=== PATIENT | female | born 1960 | race Caucasian/White ===

== ENCOUNTER 2019-12-11 20:04 | Emergency (ER) | payer OTHER ==
[~2019-12-11] VITALS: Ht 154.9 cm; Wt 60.3 kg
[2019-12-11 20:33] VITALS: BP 154/92
[2019-12-11] MEDS ORDERED: CLINDAMYCIN HCL 150 MG CAPSULE PO ONE ×2 (21:10→21:30)
[2019-12-11] MEDS ORDERED: LIDOCAINE 1%-EPI 1:100,000 20 ML VIAL ONE (21:27)
[2019-12-11] MEDS ORDERED: ONDANSETRON 4 MG TAB.RAPDIS SL ONE (21:30)
[2019-12-11] MEDS ORDERED: HYDROCODONE/APAP 5/325MG 1 EACH TABLET PO ONE (21:30)
== END 2019-12-11 21:36 | disposition home or self-care (01) ==
LOC: ER 20:07
DX: L02.416 Cutaneous abscess of left lower limb (principal); I10 Essential (primary) hypertension; F17.200 Nicotine dependence, unspecified, uncomplicated
CPT/HCPCS: 10060; 99283; A6403; J3490

== ENCOUNTER 2019-12-14 15:35 | Emergency (ER) | payer OTHER ==
[~2019-12-14] VITALS: Ht 154.9 cm; Wt 60.8 kg
--- NOTE | 2019-12-14 15:53 | NUR ---
FOR WOUND CHECK ON LEFT LOWER EXTREMITY, ON ABX TREATMENT. PATIENT A/OX4, BREATHING EVEN AND UNLABORED, NO SOB NOTED. WILL CONTINUE TO MONITOR.
--- NOTE | 2019-12-14 15:55 | NUR ---
DR. DUNAWAY AT BEDSIDE FOR EVAL
[2019-12-14] MEDS ORDERED: LIDOCAINE 1%-EPI 1:100,000 20 ML VIAL TP ONE (16:00)
[2019-12-14] MEDS ORDERED: LIDOCAINE 1%-EPI 1:100,000 20 ML VIAL ONE (16:03)
--- NOTE | 2019-12-14 16:15 | NUR ---
I&D DONE BY DR. DUNAWAY. COVERED WITH BANDAGE.
[2019-12-14 16:35] VITALS: BP 162/80
== END 2019-12-14 16:37 | disposition home or self-care (01) ==
LOC: ER 15:37
DX: L02.416 Cutaneous abscess of left lower limb (principal); I10 Essential (primary) hypertension; F17.200 Nicotine dependence, unspecified, uncomplicated
CPT/HCPCS: 10060; 99283; A6403; J3490

== ENCOUNTER 2021-08-27 02:18 | Inpatient (IN) | payer OTHER ==
[~2021-08-27] VITALS: Ht 167.6 cm; Wt 61.2 kg
[2021-08-27] MEDS ORDERED: IV NS 0.9% 1,000 ML BAG IV ONE (02:30)
[2021-08-27] MEDS ORDERED: ONDANSETRON HCL/PF 4 MG/2 ML VIAL IVP ONE (02:30)
--- NOTE | 2021-08-27 02:30 | NUR ---
PT BIBRA 102 FROM HOME C/O EPIGASTRIC PAIN +N/V X3 DAYS. PT WAS ALSO COVID POSITIVE LAST MONTH. PT IS ON ROOM AIR SHOWING NO S/S OF RESP DISTRESS/SOB. BP IS ELEVATED AND MD IS MADE AWARE. ALL SAFETY PRECAUTIONS IMPLEMENTED. WILL CONTINUE TO MONITOR AND ASSESS FOR ANY CHANGES.
--- NOTE | 2021-08-27 02:42 | NUR ---
EKG DONE AT BEDSIDE
--- NOTE | 2021-08-27 02:42 | NUR ---
COVID SPECIMEN COLLECTED AND SENT TO LAB
[2021-08-27] MEDS ORDERED: PANTOPRAZOLE 40 MG VIAL ONE ×2 (02:46→03:49)
[2021-08-27] MEDS ORDERED: hydrALAZINE HCL IV 20 MG VIAL ONE (02:46)
[2021-08-27] MEDS ORDERED: ONDANSETRON HCL/PF 4 MG/2 ML VIAL ONE ×2 (02:46→03:56)
[2021-08-27 02:49] LABS: BASOPHILS # (AUTO) 0.1 K/uL (0.0-0.2); BASOPHILS % (AUTO) 0.4 % (0.0-2.0); EOSINOPHILS % (AUTO) 0.9 % (0.0-6.0); HEMATOCRIT 28 % (33-45); HEMOGLOBIN 9.3 g/dL (11.5-14.8); LYMPHOCYTES # (AUTO) 1.9 K/uL (0.8-4.8); LYMPHOCYTES % (AUTO) 11.3 % (20.0-44.0); MEAN CORPUSCULAR HGB CONC 33 g/dl (31.0-36.0); MEAN CORPUSCULAR VOLUME 89 fL (82-100); MONOCYTES # (AUTO) 0.8 K/uL (0.1-1.30); MONOCYTES % (AUTO) 4.7 % (2.0-12.0); NEUTROPHILS # (AUTO) 14.1 K/uL (1.8-8.9); NEUTROPHILS % (AUTO) 82.7 % (43.0-81.0); PLATELET COUNT (AUTO) 500 K/uL (150-450); RED BLOOD CELL COUNT(AUTO) 3.18 MIL/uL (4.0-5.2); WHITE BLOOD COUNT (AUTO) 17.1 K/uL (4.3-11.0)
[2021-08-27 02:50] LABS: CALCIUM, SERUM 8.7 mg/dL (8.5-10.1); CREATININE 0.8 mg/dL (0.6-1.3); POTASSIUM 3.5 mmol/L (3.5-5.1)
[2021-08-27 02:57] LABS: ALBUMIN 3.1 g/dL (3.4-5.0); BILIRUBIN,DIRECT 0.6 mg/dL (0.0-0.2); BILIRUBIN,TOTAL 0.9 mg/dL (0.2-1.0); TOTAL PROTEIN, SERUM 7.3 g/dL (6.4-8.2)
[2021-08-27] MEDS ORDERED: hydrALAZINE HCL IV 20 MG VIAL IV ONE (03:00)
[2021-08-27] MEDS ORDERED: PANTOPRAZOLE 80 MG in IV NS 0.9% 500 ML IV ONE (03:00)
--- NOTE | 2021-08-27 03:39 | NUR ---
CALLED HOUSE SUP FOR TELE BED
[2021-08-27] MEDS ORDERED: ONDANSETRON HCL/PF 4 MG/2 ML VIAL IV ONE (04:00)
--- NOTE | 2021-08-27 04:05 | NUR ---
ALL DUE MEDS GIVEN ORDERED. MADE AWARE ON CONSISTENT N/V AFTER FIRST ADMINISTRATION OF ZOFRAN. PT BLOOD PRESSURE NOW 143/71. WILL CONTINUE TO MONITOR AND ASSESS.
--- NOTE | 2021-08-27 05:00 | NUR ---
REPORT GIVEN TO SHANTI PEREZ FOR TAVON.
[2021-08-27] MEDS ORDERED: PIPERACILLIN /TAZOBACTAM 3.375 G VIAL IV ONE (05:12)
--- NOTE | 2021-08-27 05:30 | NUR ---
PT TRANSFERRED TO [facility] PER ACLS PROTOCOL
--- NOTE | 2021-08-27 05:40 | NUR ---
ADMISSION RN NOTES, RECEIVED 60 YEAR OLD FEMALE, ADMITTING FROM ER VIA STRETCHER ACCOMPANIED BY 2 NURSES, [facility], WITH DX GI BLEED, PATIENT A/O X3 FILIPINO SPEAKING, UNDERSTAND ARMENIAN, BREATHING EVEN AND UNLABORED, NO SOB/ACUTTE DISTRESS NOTED, C/O NAUSEA, AND ABD PAIN 2/10, UPON ADMISSION, BP 180/83, 97.0, 18, 88, PATIENT PALE, SKIN COOL TO TOUCH, IV SITE RIGHT FA AND LEFT AC 20G, PATENT AND INTACT, ASPIRATION PRECAUTIONS, ALL SAFETY MEASURES IN PLACED, CALL LIGHT W/I REACH, S/R OF BED X2 UP, WILL CALL [facility] FOR ORDERS, WILL CONTINUE TO MONITOR CLOSELY.
--- NOTE | 2021-08-27 05:43 | NUR ---
RN NOTES, PAGED [facility] FOR ORDERS, AWAITING FOR CALL BACK.
[2021-08-27 05:50] VITALS: BP 180/80
[2021-08-27] MEDS ORDERED: PIPERACILLIN /TAZOBACTAM 3.375 G in IV D5W 50 ML IV SCH (06:00)
--- NOTE | 2021-08-27 06:00 | NUR ---
RN NOTES, PAGED [facility] AGAIN TO OBTAIN ORDERS, PATIENT WITH HIGH BLOOD PRESSURE, NAUSEAS, AND C/O ABD, PER HATCH TENDER WILL PAGED [facility].
--- NOTE | 2021-08-27 06:13 | NUR ---
RN NOTES, CALLED [facility] AGAIN AT THIS TIME, SHE WILL PUT ORDERS, STAT CBC, CLARIFIED WITH HER IF SHE WANT ME TO ADM PROTONIX AT THIS TIME, SINCE SHE GOT PROTONIX IN ER AT 0400, PER HER TO ADMINISTER PROTONIX.
[2021-08-27] MEDS ORDERED: DEXTROSE 50%-WATER 50 ML DISP.SYRIN IV PRN (06:30)
[2021-08-27] MEDS ORDERED: ACETAMINOPHEN 325 MG TABLET PO PRN (06:30)
[2021-08-27] MEDS ORDERED: CIPROFLOXACIN IV RTU 400 MG in PREMIX 1 EA IV SCH (06:30)
[2021-08-27] MEDS ORDERED: ONDANSETRON HCL/PF 4 MG/2 ML VIAL IVP PRN (06:30)
--- NOTE | 2021-08-27 07:00 | NUR ---
RN NOTES, AWAITING FOR PHARMACY TO VERIFIED ORDERS.
--- NOTE | 2021-08-27 07:05 | NUR ---
RN NOTES, CALLED PHARMACY AND ASKED TO VERIFIED ORDERS FOR PATIENT. AWAITING.
--- NOTE | 2021-08-27 07:10 | NUR ---
RN NOTES, ENDORSED PATIENT TO SAMUEL MOSER OF CONTINUATION OF CARE, STAT CBC BLOOD DRAWN AT THIS TIME.
[2021-08-27] MEDS: INSULIN REGULAR, HUMAN 100 UNIT/ML 3 ML VIAL SQ PRN ×2 (07:33→12:02)
--- NOTE | 2021-08-27 07:43 | NUR ---
RN NOTE PATIENT IS IN BED WITH HOB AT SEMI FOWLERS POSITION. PATIENT IS ON ROOM AIR WITH NO SIGNS OF LABORED BREATHING. PATIENT IS AOX3. RFA 20G AND LAC 20G ARE PATENT AND INTACT. BED IS LOCKED IN THE LOWEST POSITION, 3 GUARD RAILS RAISED, CALL DAMON WITHIN REACH, AND ALL HOSPITAL SAFETY PRECAUTIONS ARE BEING FOLLOWED. WILL CONTINUE TO MONITOR THROUGHOUT SHIFT.
[2021-08-27 07:44] LABS: BASOPHILS % (AUTO) 0.3 % (0.0-2.0); HEMATOCRIT 26 % (33-45); HEMOGLOBIN 8.5 g/dL (11.5-14.8); LYMPHOCYTES # (AUTO) 0.7 K/uL (0.8-4.8); LYMPHOCYTES % (AUTO) 4.6 % (20.0-44.0); MEAN CORPUSCULAR HGB CONC 33 g/dl (31.0-36.0); MEAN CORPUSCULAR VOLUME 89 fL (82-100); MONOCYTES # (AUTO) 0.3 K/uL (0.1-1.30); MONOCYTES % (AUTO) 1.8 % (2.0-12.0); NEUTROPHILS # (AUTO) 14.4 K/uL (1.8-8.9); NEUTROPHILS % (AUTO) 93.3 % (43.0-81.0); PLATELET COUNT (AUTO) 437 K/uL (150-450); RED BLOOD CELL COUNT(AUTO) 2.88 MIL/uL (4.0-5.2); WHITE BLOOD COUNT (AUTO) 15.5 K/uL (4.3-11.0)
[2021-08-27] MEDS: IV NS 0.9% 1,000 ML IV PRN ×2 (07:55→20:25)
[2021-08-27] MEDS ORDERED: METF-442 PO (08:26)
[2021-08-27] MEDS ORDERED: BENA5TAB5 PO (08:26)
[2021-08-27] MEDS: CLONIDINE HCL 0.2MG/24H PTWK 1 EA PATCH TD SCH (09:32)
[2021-08-27] MEDS: NITROGLYCERIN 30 GM TUBE TP SCH ×2 (09:38→17:32)
[2021-08-27] MEDS: BLOOD SUGAR DIAGNOSTIC 1 EACH STRIP IN SCH ×2 (11:55→18:08)
[2021-08-27 12:00] VITALS: BP 107/63
[2021-08-27] MEDS ORDERED: METRONIDAZOLE 500MG/ NS 100ML 500 MG in PREMIX 1 EA IV SCH (12:00)
[2021-08-27 16:00] VITALS: BP 128/68
--- NOTE | 2021-08-27 18:08 | NUR ---
RN NOTE HOLDING INSULING COVERAGE FOR BLOOD SUGAR 145 DUE TO PATIENT'S NPO STATUS.
--- NOTE | 2021-08-27 18:36 | NUR ---
RN NOTE PATIENT IS IN BED WITH HOB AT SEMI FOWLERS POSITION. PATIENT IS ON ROOM AIR WITH NO SIGNS OF LABORED BREATHING. PATIENT IS AOX3. RFA 20G AND LAC 20G ARE PATENT AND INTACT. BED IS LOCKED IN THE LOWEST POSITION, 3 GUARD RAILS RAISED, CALL DAMON WITHIN REACH, AND ALL HOSPITAL SAFETY PRECAUTIONS ARE BEING FOLLOWED. ALL DUE MEDS GIVEN AND PATIENT REMAINED STABLE THROUGHOUT SHIFT. WILL ENDORSE TO FARMWORKER VEGETABLE RN.
--- NOTE | 2021-08-27 19:30 | NUR ---
RN NOTE RECEIVED PATIENT IN BED. A/OX3. TOLERATING ROOM AIR. RESPIRATIONS ARE EVEN AND UNLABORED. NO S/S SOB NOTED. NO C/O PAIN AT THIS TIME. IN NO APPARENT DISTRESS. TELE MONITOR READS SINUS RHYTHM WITH INVERTED T WAVE HR 90. IV ACCESS IN RFA#20 AND LAC#20 RUNNING NS @75ML/HR. INFORMED PATIENT THAT SHE WILL NEED A HIDA SCAN TOMORROW, OBTAINED A SIGNED CONSENT, ALSO INFORMED PATIENT WE NEED A STOOL SPECIMEN, HAT PLACED IN TOILET. BE IS LOW AND LOCKED HOB ELEVATED IN SEMI FOWLERS, SIDE RAILS UP X2, CALL LIGHT WITHIN REACH.
[2021-08-27 20:00] VITALS: BP 134/74
[2021-08-27] MEDS: PANTOPRAZOLE 40 MG VIAL IV SCH (20:11)
[2021-08-27 23:01] LABS: HEMOGLOBIN 7.2 g/dL (11.5-14.8); LYMPHOCYTES # (AUTO) 1.6 K/uL (0.8-4.8); LYMPHOCYTES % (AUTO) 11.7 % (20.0-44.0); MONOCYTES # (AUTO) 0.9 K/uL (0.1-1.30)
[2021-08-27 23:06] LABS: BASOPHILS # (AUTO) 0.1 K/uL (0.0-0.2); BASOPHILS % (AUTO) 0.4 % (0.0-2.0); HEMATOCRIT 23 % (33-45); MEAN CORPUSCULAR HGB CONC 32 g/dl (31.0-36.0); MEAN CORPUSCULAR VOLUME 89 fL (82-100); MONOCYTES % (AUTO) 6.7 % (2.0-12.0); NEUTROPHILS # (AUTO) 11.3 K/uL (1.8-8.9); NEUTROPHILS % (AUTO) 81.2 % (43.0-81.0); PLATELET COUNT (AUTO) 380 K/uL (150-450); RED BLOOD CELL COUNT(AUTO) 2.53 MIL/uL (4.0-5.2)
[2021-08-28] VITALS (7 sets, daily range): BP systolic 93–196; BP diastolic 49–96
[2021-08-28] MEDS: PIPERACILLIN /TAZOBACTAM 3.375 G in IV D5W 50 ML IV SCH ×4 (00:09→17:16)
[2021-08-28] MEDS: BLOOD SUGAR DIAGNOSTIC 1 EACH STRIP IN SCH ×4 (00:09→18:27)
[2021-08-28] MEDS: INSULIN REGULAR, HUMAN 100 UNIT/ML 3 ML VIAL SQ PRN ×2 (00:20→17:55)
--- NOTE | 2021-08-28 06:21 | NUR ---
RN NOTE PATIENT RESTING IN BED. A/OX3. REMAINS TOLERATING ROOM AIR. NO RESP DISTRESS. NO PAIN, STATES SHES VERY TIRED. NO NAUSEA OR VOMITING DURING SHIFT. TELE MONITOR READS SINUS RHYTHM WITH INVERTED T WAVE. IV IN RFA#20 AND LAC#20 RUNNING NS @75ML/HR. PATIENT WAS ABLE TO PRODUCE STOOL BUT UNFORTUNATELY IT MISSED THE HAT. BED IS LOW AND LOCKED HOB ELEVATED IN SEMI FOWLERS, SIDE RAILS UP X2, CALL LIGHT WITHIN REACH. WILL ENDORSE TO ONCOMING SHIFT.
[2021-08-28 06:35] LABS: BASOPHILS # (AUTO) 0.1 K/uL (0.0-0.2); BASOPHILS % (AUTO) 0.9 % (0.0-2.0); EOSINOPHILS % (AUTO) 0.2 % (0.0-6.0); HEMATOCRIT 21 % (33-45); HEMOGLOBIN 7.1 g/dL (11.5-14.8); LYMPHOCYTES # (AUTO) 1.1 K/uL (0.8-4.8); LYMPHOCYTES % (AUTO) 11.2 % (20.0-44.0); MEAN CORPUSCULAR HGB CONC 34 g/dl (31.0-36.0); MEAN CORPUSCULAR VOLUME 90 fL (82-100); MONOCYTES # (AUTO) 0.8 K/uL (0.1-1.30); MONOCYTES % (AUTO) 7.7 % (2.0-12.0); NEUTROPHILS # (AUTO) 7.8 K/uL (1.8-8.9); PLATELET COUNT (AUTO) 373 K/uL (150-450); RED BLOOD CELL COUNT(AUTO) 2.35 MIL/uL (4.0-5.2); WHITE BLOOD COUNT (AUTO) 9.8 K/uL (4.3-11.0)
[2021-08-28 07:26] LABS: ALBUMIN 2.4 g/dL (3.4-5.0); BILIRUBIN,TOTAL 1.8 mg/dL (0.2-1.0); CALCIUM, SERUM 7.7 mg/dL (8.5-10.1); CREATININE 0.9 mg/dL (0.6-1.3); MAGNESIUM 1.5 mg/dL (1.8-2.4); PHOSPHORUS 2.8 mg/dL (2.5-4.9); POTASSIUM 3.5 mmol/L (3.5-5.1); TOTAL PROTEIN, SERUM 5.9 g/dL (6.4-8.2)
--- NOTE | 2021-08-28 07:30 | NUR ---
APPLICATIONS SUPPORT ENGINEER OPENING NOTE PT A/Ox3/3 IN BED SEMIFOWLWER'S BREATHING RA SPO2 97%, NO S/S OF RESP DISTRESS OR SOB. PT DENIES PAIN AT THIS MOMENT. PT IS NPO. HAS UPCOMING HEPATO BILIARY HIDA SCAN SOON, CONSENT SIGNED. PT HAS RFA #20 RUNNING NS @ 75ML/HR AND LAC #20, BOTHJ FLUSHED AND PATENT, NO S/S OF INFECTION/INFILTRATION. ALL PT SAFETY PRECAUTIONS IN PLACE, WILL CONT TO MONITOR
[2021-08-28] MEDS: PANTOPRAZOLE 40 MG VIAL IV SCH ×2 (08:31→21:34)
[2021-08-28] MEDS: NITROGLYCERIN 30 GM TUBE TP SCH ×2 (08:32→17:18)
[2021-08-28] MEDS: BENAZEPRIL HCL 5 MG TABLET PO SCH (08:32)
[2021-08-28] MEDS: Magnesium 1GM/D5W 100ML PREMIX 100 ML IV SCH ×2 (11:55→13:33)
[2021-08-28] MEDS: hydrALAZINE HCL IV 20 MG VIAL IV PRN ×2 (12:08→17:17)
--- NOTE | 2021-08-28 12:18 | NUR ---
RN NOTE PT BACK FROM HEPATO BILIARY HIDA SCAN; BP 196/96, CHECKED 3x. HYDRALIZINE 10MG GIVEN PER ORDER. WILL REASSESS SHORTLY
[2021-08-28] MEDS: IV NS 0.9% 1,000 ML IV PRN (17:19)
--- NOTE | 2021-08-28 18:48 | NUR ---
CLOTH SHRINKING MACHINE OPERATOR HELPER CLOSING NOTE PT RESTING IN BED COMFORTABLY, HEPATO BILIARY HIDA SCAN RESULTED, PER DNP JORDAN SOUZA PT WILL NEED SURGERY, NO TIME GIVEN YET. PT GIVEN HYDRALAZINE 10 MG @ 1730 FOR BP OF 172/92, BP IMPROVED 135/70. PT RUNNING NS @ 75 ML/HR. PT NOW ON FULL LIQUID DIET, WILL NEED TO BE NPO IF SURGERY SCHEDULED FOR TOMORROW. MONITOR H/H FOR POSSIBLE PRBC TRANSFUSION IF HGB < 7.0; CONSENT SIGNED. NO EMESIS NOR NAUSEA DURING SHIFT, PT DENIES BLEEDING WHEN USING BATHROOM. ALL PT SAFETY PRECAUTINOS IN PLACE, WILL ENDORSE TAVON TO ONCOMING RN
--- NOTE | 2021-08-28 19:30 | NUR ---
RN NOTE RECEIVED PATIENT IN BED. A/OX3. TOLERATING ROOM AIR. RESPIRATIONS ARE EVEN AND UNLABORED. NO S/S SOB NOTED. NO C/O PAIN AT THIS TIME. IN NO APPARENT DISTRESS. TELE MONITOR READS SINUS RHYTHM WITH INVERTED T WAVE. IV ACCESS IN RFA#20 AND LAC#20 RUNNING NS @75ML/HR. INFORMED PATIENT WE NEED A STOOL SPECIMEN. BED IS LOW AND LOCKED HOB ELEVATED IN SEMI FOWLERS, SIDE RAILS UP X2, CALL LIGHT WITHIN REACH.
--- NOTE | 2021-08-28 20:51 | NUR ---
RN NOTE SPOKE WITH DR. CAMERON, RECEIVED ORDER FOR MRCP, ALSO RECEIVED ORDER FOR NPO AFTER MIDNIGHT D/T POSSIBLE SURGERY AFTER MRCP RESULTS. OBTAINED CONSENT AND COMPLETED MRI CHECKLIST.
[2021-08-28] MEDS: hydrALAZINE HCL 25 MG TABLET PO SCH (21:00)
[2021-08-29] VITALS (21 sets, daily range): BP systolic 122–201; BP diastolic 66–105
--- NOTE | 2021-08-29 | NUR ---
RN NOTE PATIENT INFORMED AND ACKNOWLEDGED NO WATER OR FOOD INTAKE. ALL DRINKS REMOVED FROM BEDSIDE. VICE PRESIDENT OF CUSTOMER SERVICE INFORMED. NPO SIGN PLACED AT DOOR WAY.
[2021-08-29] MEDS: BLOOD SUGAR DIAGNOSTIC 1 EACH STRIP IN SCH ×4 (00:05→18:02)
[2021-08-29] MEDS: PIPERACILLIN /TAZOBACTAM 3.375 G in IV D5W 50 ML IV SCH ×4 (00:06→18:50)
--- NOTE | 2021-08-29 00:33 | NUR ---
RN NOTE INFORMED LICENSED ESTHETICIAN [facility] SHIFT COORDINATOR THAT PATIENT BLOOD SUGAR IS 252, PATIENT IS NPO, FOR MRCP TOMORROW AND POSSIBLE SURGERY AFTER, PER SLIDING SCALE GIVE 6 UNITS. AICHA SHIFT COORDINATOR ORDERED TO GIVE 6 UNITS IF IT IS NPO SLIDING SCALE. INFORMED HER THAT THE ORDER IS FOR SLIDING SCALE NPO [id number], AICHA STATED OK TO GIVE. ORDER READ BACK NOTED AND CARRIED OUT.
[2021-08-29] MEDS: INSULIN REGULAR, HUMAN 100 UNIT/ML 3 ML VIAL SQ PRN ×2 (00:38→05:44)
[2021-08-29] MEDS: hydrALAZINE HCL 25 MG TABLET PO SCH ×3 (04:36→20:55)
--- NOTE | 2021-08-29 05:47 | NUR ---
PERIOPERATIVE EDUCATOR NOTIFIED FOR MRCP VIA TEXT.
--- NOTE | 2021-08-29 06:18 | NUR ---
RN NOTE PATIENT RESTING IN BED. A/OX3. NO SOB. NO PAIN. NO N/V.. TELE MONITOR READS SINUS RHYTHM WITH INVERTED T WAVE. IV IN RFA#20 AND LAC#20 RUNNING NS @75ML/HR. BED IS LOW AND LOCKED HOB ELEVATED IN SEMI FOWLERS, SIDE RAILS UP X2, CALL LIGHT WITHIN REACH. WILL ENDORSE ONCOMING SHIFT.
[2021-08-29 07:24] LABS: ALBUMIN 2.5 g/dL (3.4-5.0); CALCIUM, SERUM 8.2 mg/dL (8.5-10.1); CREATININE 0.9 mg/dL (0.6-1.3); MAGNESIUM 2.2 mg/dL (1.8-2.4); PHOSPHORUS 2.4 mg/dL (2.5-4.9); POTASSIUM 3.2 mmol/L (3.5-5.1); TOTAL PROTEIN, SERUM 6.2 g/dL (6.4-8.2)
--- NOTE | 2021-08-29 07:27 | NUR ---
NURSE OPENING NOTE. RECEIVE REPORT FROM OUT GOING NURSE. PATIENT IN STABLE CONDITION. AWAKE, A/O X3. CONTINUE WITH FLUID HYDRATION WITH NS RUNNING AT 75ML/HR. PATIENT IS NPO. WILL MONITOR LABS FOR LOW HEMOGLOBIN. SAFETY MEASURE IN PLACE. BED LOCK IN THE LOWEST POSITION WITH HOB ELEVATED. 3 SIDE RAIL UP. CALL LIGHT WITHIN REACH. WILL CONTINUE TO MONITOR.
[2021-08-29 07:35] LABS: BASOPHILS # (AUTO) 0.1 K/uL (0.0-0.2); BASOPHILS % (AUTO) 1.2 % (0.0-2.0); EOSINOPHILS % (AUTO) 1.8 % (0.0-6.0); HEMATOCRIT 22 % (33-45); HEMOGLOBIN 7.3 g/dL (11.5-14.8); LYMPHOCYTES # (AUTO) 1.7 K/uL (0.8-4.8); LYMPHOCYTES % (AUTO) 20.5 % (20.0-44.0); MEAN CORPUSCULAR HGB CONC 34 g/dl (31.0-36.0); MEAN CORPUSCULAR VOLUME 88 fL (82-100); MONOCYTES # (AUTO) 0.8 K/uL (0.1-1.30); MONOCYTES % (AUTO) 8.9 % (2.0-12.0); NEUTROPHILS # (AUTO) 5.7 K/uL (1.8-8.9); NEUTROPHILS % (AUTO) 67.6 % (43.0-81.0); PLATELET COUNT (AUTO) 410 K/uL (150-450); RED BLOOD CELL COUNT(AUTO) 2.46 MIL/uL (4.0-5.2); WHITE BLOOD COUNT (AUTO) 8.5 K/uL (4.3-11.0)
[2021-08-29] MEDS: BENAZEPRIL HCL 5 MG TABLET PO SCH (09:19)
[2021-08-29] MEDS: PANTOPRAZOLE 40 MG VIAL IV SCH ×2 (09:19→20:54)
[2021-08-29] MEDS: NITROGLYCERIN 30 GM TUBE TP SCH ×2 (09:20→18:51)
[2021-08-29] MEDS: IV NS 0.9% 1,000 ML IV PRN (09:31)
--- NOTE | 2021-08-29 10:51 | NUR ---
NURSE NOTE PATIENT HAVE BEEN PICKED UP FOR MRCP
[2021-08-29] MEDS ORDERED: PEG 3350/NA SULF,BICARB,CL/KCL 4,000 ML BOTTLE PO ONE (11:30)
[2021-08-29] MEDS: POTASSIUM CL. PREMIX PERIPHER. 50 ML IV SCH ×4 (12:13→21:54)
[2021-08-29] MEDS ORDERED: Sodium Phosphate 15 MMOL in IV NS 0.9% 245 ML IV SCH ×2 (13:00→15:00)
--- NOTE | 2021-08-29 19:02 | NUR ---
NURSE CLOSING NOTE PATIENT IN STABLE CONDITION. HEMOGLOBIN IS 7.3. 2 UNITS OF BLOOD IS BEING GIVEN. A/O X3. PATIENT IS AMBULATORY. ON CLEAR FLUID DIET. UNABLE TO DO MRCP. PATIENT HAD ANXIETY. DID NOT HAVE BOWEL MOVEMENT. ALL PROCEDURE CONSENT SIGNED. ALEA SURGERY WILL BE DONE ON WEDNESDAY. SAFETY MEASURE IN PLACE. BED ON LOWEST POSITION WITH HOB ELEVATED AND 3 SIDE RAIL UP. CALL LIGHT WITHIN REACH. WILL CONTINUE TO MONITOR AND GIVE REPORT TO NON COMING NURSE.
--- NOTE | 2021-08-29 19:24 | NUR ---
NURSE CLOSING NOTE. DID NOT GIVE SODIUM PHOSPHATE. PATIENT GETTING 2 UNITS PRBC AND ANTIBIOTIC.
--- NOTE | 2021-08-29 20:00 | NUR ---
MS RN NOTE. RECEIVE PTS IN BED AWAKE A/OX 4 , ON 2ND UNIT OF PRBC ON PROGRESS ON CLEAR LIQUID DIET ON GOLYTELY PREP INSTRUCTED TO PTS. , WITH LAC G#22 AND RFA g20 INTACT AND PATENT , PTS IS AMBULATORY SAFETY MEASURE IN PLACE. BED LOCK IN THE LOWEST POSITION WITH HOB ELEVATED. 3 SIDE RAIL UP. CALL LIGHT WITHIN REACH.ALL NEEDS ATENDED TOO , ALL DUE MEDS GIVEN ORDERED, V/S STABLE AFEBRILE. WILL CONTINUE TO MONITOR PTS ,
--- NOTE | 2021-08-29 20:52 | NUR ---
ms rn notes 2nd unit of prbc completed with no ase noted , will continue to monitor pts.
[2021-08-29] MEDS ORDERED: POTASSIUM CL. PREMIX PERIPHER. 50 ML ONE ×2 (21:01→21:53)
[2021-08-29] MEDS ORDERED: Sodium Phosphate 15 MMOL in IV NS 0.9% 250 ML IV ONE (23:30)
[2021-08-29] MEDS ORDERED: Sodium Phosphate 30 MMOL in IV NS 0.9% 250 ML IV ONE (23:30)
[2021-08-30] MEDS: PIPERACILLIN /TAZOBACTAM 3.375 G in IV D5W 50 ML IV SCH ×5 (00:08→23:25)
[2021-08-30] MEDS: INSULIN REGULAR, HUMAN 100 UNIT/ML 3 ML VIAL SQ PRN ×4 (00:12→23:32)
[2021-08-30] MEDS: BLOOD SUGAR DIAGNOSTIC 1 EACH STRIP IN SCH ×5 (00:12→23:37)
--- NOTE | 2021-08-30 00:14 | NUR ---
ms rn notes Blood sugar at 12mn is 189mmol/dl 3 units of regular insulin given per sliding scale.will check bs in am.
[2021-08-30 04:00] VITALS: BP_SYST 163; BP_SYST 168; BP_DIAS 83
[2021-08-30] MEDS: hydrALAZINE HCL 25 MG TABLET PO SCH ×3 (04:15→21:38)
[2021-08-30 06:37] LABS: BASOPHILS # (AUTO) 0.2 K/uL (0.0-0.2); EOSINOPHILS % (AUTO) 3.4 % (0.0-6.0); HEMATOCRIT 30 % (33-45); HEMOGLOBIN 10.4 g/dL (11.5-14.8); LYMPHOCYTES # (AUTO) 1.4 K/uL (0.8-4.8); MEAN CORPUSCULAR HGB CONC 35 g/dl (31.0-36.0); MEAN CORPUSCULAR VOLUME 89 fL (82-100); MONOCYTES # (AUTO) 0.8 K/uL (0.1-1.30); MONOCYTES % (AUTO) 9.3 % (2.0-12.0); NEUTROPHILS # (AUTO) 5.9 K/uL (1.8-8.9); NEUTROPHILS % (AUTO) 69.3 % (43.0-81.0); PLATELET COUNT (AUTO) 389 K/uL (150-450); RED BLOOD CELL COUNT(AUTO) 3.37 MIL/uL (4.0-5.2); WHITE BLOOD COUNT (AUTO) 8.5 K/uL (4.3-11.0)
--- NOTE | 2021-08-30 06:42 | NUR ---
RN CLOSING NOTES PATIENT IN BED, NO S/SX OF DISTRESS OR DISCOMFORT, NO SOB ATH THIS SHIFT. WITH IV ACCESS AT RFA G#20 PATENT AND FLUSHES WELL, WITH L AC G#20 FLUSHES WELL. WITH ONGOING IVF OF PNS 1L @ 75CC/HR. ON ROOM AIR SATURATION OF 98%. ALL SAFETY MEASURE IN PLACE AT ALL TIMES, HOB ELEVATED, BED ON LOWEST LOCKED POSITION, CALL LIGHT WITHIN REACH. WILL CONTINUE TO MONITOR THE PATIENT. ENDORSED
[2021-08-30 06:52] LABS: CALCIUM, SERUM 7.7 mg/dL (8.5-10.1); CREATININE 0.7 mg/dL (0.6-1.3); MAGNESIUM 1.7 mg/dL (1.8-2.4); PHOSPHORUS 3.6 mg/dL (2.5-4.9); POTASSIUM 3.2 mmol/L (3.5-5.1)
--- NOTE | 2021-08-30 07:15 | NUR ---
RN OPENING NOTE Received patient awake in the bathroom assisted with DEVICE REPAIR TECHNICIAN. Patient has GoLytely at bedside per report patient has been having dark brown chocolate colored stool 4x. On room air no signs of distress. AOX3-4. Patient is on clear liquids. LAC#20 and RFA#20 running NS @ 75ml/hr. No co pain or discomfort at this time. Safety measures maintained. Call light within reach. Will cont to monitor.
[2021-08-30 08:00] VITALS: BP 156/84
[2021-08-30] MEDS: PANTOPRAZOLE 40 MG VIAL IV SCH ×2 (08:39→21:37)
[2021-08-30] MEDS: NITROGLYCERIN 30 GM TUBE TP SCH ×2 (08:40→17:08)
[2021-08-30] MEDS: BENAZEPRIL HCL 5 MG TABLET PO SCH (08:40)
[2021-08-30 09:18] LABS: OCCULT BLOOD STOOL POSITIVE (NEGATIVE)
[2021-08-30] MEDS: POTASSIUM CHLORIDE 20 MEQ TAB.PRT.SR PO SCH ×2 (09:36→10:32)
[2021-08-30] MEDS: Magnesium 1GM/D5W 100ML PREMIX 100 ML IV SCH ×2 (09:36→10:32)
[2021-08-30] MEDS: IV NS 0.9% 1,000 ML IV PRN (14:07)
[2021-08-30 16:00] VITALS: BP 180/91
[2021-08-30] MEDS: hydrALAZINE HCL IV 20 MG VIAL IV PRN (16:12)
--- NOTE | 2021-08-30 16:30 | NUR ---
PATIENT BP WAS 180MMHG ADMINISTERED IV APRESOLINE PROTOCOL ORDER.
--- NOTE | 2021-08-30 18:50 | NUR ---
RN CLOSING NOTE Patient awake in bed appears calm and relaxed. All due meds given. No adverse effect to medication. All needs mets. Kept clean and comfortable. Vital signs within normal limits. Safety measures reinforced. Endorsed to shift stacker nurse for elliot.
--- NOTE | 2021-08-30 19:45 | NUR ---
MS RN NOTE. RECEIVE PTS IN BED AWAKE A/OX 4 , CONT. ON GOLYTELY PREP INSTRUCTED TO PTS. , WITH LAC G#22 AND RFA g20 INTACT AND PATENT ,ON IVF OF NS AT 75CC/HR ON PROGRESS . PTS IS AMBULATORY SAFETY MEASURE IN PLACE. BED LOCK IN THE LOWEST POSITION WITH HOB ELEVATED. 1/2 SIDE RAIL UP. CALL LIGHT WITHIN REACH.ALL NEEDS ATENDED TOO , ALL DUE MEDS GIVEN ORDERED, PTS WILL BE NPO POST MN .V/S STABLE AFEBRILE. WILL CONTINUE TO MONITOR PTS ,
--- NOTE | 2021-08-30 23:56 | NUR ---
Blood sugar at 12mn is 219 mmol/dl 4 units of regular insulin given per sliding scale . will check bs again in 6am.
[2021-08-31 04:00] VITALS: BP 131/75
[2021-08-31] MEDS: PIPERACILLIN /TAZOBACTAM 3.375 G in IV D5W 50 ML IV SCH ×3 (05:07→17:03)
[2021-08-31] MEDS: hydrALAZINE HCL 25 MG TABLET PO SCH ×3 (05:13→21:10)
[2021-08-31] MEDS: INSULIN REGULAR, HUMAN 100 UNIT/ML 3 ML VIAL SQ PRN (05:30)
[2021-08-31] MEDS: BLOOD SUGAR DIAGNOSTIC 1 EACH STRIP IN SCH ×3 (05:30→17:00)
--- NOTE | 2021-08-31 05:32 | NUR ---
ms rn notes Blood sugar for 6am is 140mmol/dl 2 units of regular insulin given per sliding scale .
--- NOTE | 2021-08-31 06:28 | NUR ---
RN CLOSING NOTES PATIENT IN BED, NO S/SX OF DISTRESS OR DISCOMFORT, NO SOB NOTED . WITH IV ACCESS AT RFA G#20 PATENT AND FLUSHES WELL, WITH L AC G#20 FLUSHES WELL. WITH ONGOING IVF OF NS 1L @ 75CC/HR. ON ROOM AIR SATURATION OF 98%. ALL SAFETY MEASURE IN PLACE AT ALL TIMES, HOB ELEVATED, BED ON LOWEST LOCKED POSITION, CALL LIGHT WITHIN REACH. WILL CONTINUE TO MONITOR THE PATIENT. ON CLEAR LIQUID FOR GOLITELY, WILL ENDORSE TO RN DAY SHIFT FOR CONTINUITY OF CARE.
[2021-08-31 06:30] LABS: CALCIUM, SERUM 7.8 mg/dL (8.5-10.1); CREATININE 0.9 mg/dL (0.6-1.3); PHOSPHORUS 2.8 mg/dL (2.5-4.9); POTASSIUM 3.2 mmol/L (3.5-5.1)
[2021-08-31 06:48] LABS: BASOPHILS # (AUTO) 0.1 K/uL (0.0-0.2); BASOPHILS % (AUTO) 1.4 % (0.0-2.0); EOSINOPHILS % (AUTO) 4.3 % (0.0-6.0); HEMATOCRIT 29 % (33-45); LYMPHOCYTES # (AUTO) 1.6 K/uL (0.8-4.8); LYMPHOCYTES % (AUTO) 20.8 % (20.0-44.0); MEAN CORPUSCULAR HGB CONC 34 g/dl (31.0-36.0); MEAN CORPUSCULAR VOLUME 89 fL (82-100); MONOCYTES # (AUTO) 0.6 K/uL (0.1-1.30); MONOCYTES % (AUTO) 8.6 % (2.0-12.0); NEUTROPHILS # (AUTO) 4.9 K/uL (1.8-8.9); NEUTROPHILS % (AUTO) 64.9 % (43.0-81.0); PLATELET COUNT (AUTO) 410 K/uL (150-450); RED BLOOD CELL COUNT(AUTO) 3.32 MIL/uL (4.0-5.2); WHITE BLOOD COUNT (AUTO) 7.6 K/uL (4.3-11.0)
--- NOTE | 2021-08-31 07:53 | NUR ---
MS RN OPENING NOTE RECEIVED PT AWAKE IN BED. A/O X3. PT IS STABLE ON ROOM AIR WITH NO SOB OR S/S OF RESPIRATORY DISTRESS NOTED. PT HAS NO C/O PAIN OR DISCOMFORT AT THIS TIME. IV ACCESS IN LAC #20 AND RFA #20 INFUSING NS AT 75 ML/HR, INTACT AND PATENT. SAFETY PRECAUTIONS MAINTAINED. BED IN LOWEST LOCKED POSITION, HOB ELEVATED, SIDE RAIL UP X2. CALL LIGHT AND TABLE WITHIN REACH. WILL CONTINUE TO MONITOR.
[2021-08-31 08:00] VITALS: BP 115/69
[2021-08-31] MEDS: PANTOPRAZOLE 40 MG VIAL IV SCH ×2 (08:21→21:10)
[2021-08-31] MEDS: NITROGLYCERIN 30 GM TUBE TP SCH ×2 (09:10→16:27)
[2021-08-31] MEDS: BENAZEPRIL HCL 5 MG TABLET PO SCH (09:10)
[2021-08-31] MEDS: POTASSIUM CL. PREMIX PERIPHER. 50 ML IV SCH ×4 (09:16→12:31)
[2021-08-31 12:00] VITALS: BP 173/86
--- NOTE | 2021-08-31 16:00 | NUR ---
RN NOTE DR. CAMERON AT PT'S BEDSIDE.
--- NOTE | 2021-08-31 18:23 | NUR ---
MS RN CLOSING NOTE PT IS AWAKE IN BED. A/O X4. PT IS STABLE ON ROOM AIR WITH NO SOB OR S/S OF RESPIRATORY DISTRESS NOTED. PT HAS NO C/O PAIN OR DISCOMFORT AT THIS TIME. IV ACCESS IN LAC #20 AND RFA #20 INFUSING NS AT 75 ML/HR, INTACT AND PATENT. ALL NEEDS HAVE BEEN MET. SAFETY PRECAUTIONS MAINTAINED AT ALL TIMES. BED IN LOWEST LOCKED POSITION, HOB ELEVATED, SIDE RAIL UP X2. CALL LIGHT AND TABLE WITHIN REACH. WILL ENDORSE TO ONCOMING NURSE FOR TAVON.
[2021-08-31 20:00] VITALS: BP 135/55
[2021-09-01] MEDS: PIPERACILLIN /TAZOBACTAM 3.375 G in IV D5W 50 ML IV SCH ×4 (00:33→17:17)
[2021-09-01] MEDS: INSULIN REGULAR, HUMAN 100 UNIT/ML 3 ML VIAL SQ PRN ×2 (01:08→12:48)
[2021-09-01] MEDS: BLOOD SUGAR DIAGNOSTIC 1 EACH STRIP IN SCH ×4 (01:08→17:18)
[2021-09-01] MEDS: IV NS 0.9% 1,000 ML IV PRN ×2 (03:11→21:07)
[2021-09-01 04:00] VITALS: BP 171/79
[2021-09-01] MEDS: hydrALAZINE HCL 25 MG TABLET PO SCH ×3 (04:19→21:08)
--- NOTE | 2021-09-01 06:00 | NUR ---
RN NOTES, PATIENT REFUSED ACCUCHECK A THIS TIME, EXPLAINED RISKS AND BENEFITS, STILL REFUSED.
--- NOTE | 2021-09-01 07:40 | NUR ---
RN OPENING NOTES Patient is awake, alert and oriented x 3, denies any distress, no respiratory distress, no SOB. On IV hydration NS @75cc/hr. NPO except meds. Safety precautions implemented, bed locked in lowest position, call light within reach.
[2021-09-01] MEDS: PANTOPRAZOLE 40 MG VIAL IV SCH ×2 (08:35→21:07)
[2021-09-01] MEDS: BENAZEPRIL HCL 5 MG TABLET PO SCH (08:35)
[2021-09-01] MEDS: NITROGLYCERIN 30 GM TUBE TP SCH ×2 (08:39→17:18)
[2021-09-01 12:00] VITALS: BP 124/68
[2021-09-01 14:54] LABS: BASOPHILS % (AUTO) 0.3 % (0.0-2.0); EOSINOPHILS % (AUTO) 2.1 % (0.0-6.0); HEMATOCRIT 34 % (33-45); HEMOGLOBIN 11.5 g/dL (11.5-14.8); LYMPHOCYTES # (AUTO) 1.7 K/uL (0.8-4.8); LYMPHOCYTES % (AUTO) 16.6 % (20.0-44.0); MEAN CORPUSCULAR HGB CONC 34 g/dl (31.0-36.0); MEAN CORPUSCULAR VOLUME 89 fL (82-100); MONOCYTES # (AUTO) 0.7 K/uL (0.1-1.30); MONOCYTES % (AUTO) 7.1 % (2.0-12.0); NEUTROPHILS # (AUTO) 7.7 K/uL (1.8-8.9); NEUTROPHILS % (AUTO) 73.9 % (43.0-81.0); PLATELET COUNT (AUTO) 428 K/uL (150-450); RED BLOOD CELL COUNT(AUTO) 3.75 MIL/uL (4.0-5.2); WHITE BLOOD COUNT (AUTO) 10.4 K/uL (4.3-11.0)
[2021-09-01 15:08] LABS: ALBUMIN 2.2 g/dL (3.4-5.0); BILIRUBIN,TOTAL 0.9 mg/dL (0.2-1.0); CALCIUM, SERUM 7.9 mg/dL (8.5-10.1); CREATININE 0.8 mg/dL (0.6-1.3); MAGNESIUM 1.9 mg/dL (1.8-2.4); PHOSPHORUS 3.2 mg/dL (2.5-4.9); POTASSIUM 3.1 mmol/L (3.5-5.1); TOTAL PROTEIN, SERUM 5.9 g/dL (6.4-8.2)
--- NOTE | 2021-09-01 16:35 | NUR ---
RN NOTE Per Dr. [facility], EGD and colonoscopy will be done tomorrow 09/02/21. May start clear liquid diet. NPO after midnight.
--- NOTE | 2021-09-01 18:50 | NUR ---
RN CLOSING NOTE Patient awake, alert and oriented x 4, no respiratory distress, no SOB. On IV hydration NS @75cc/hr with no s/sx of infiltration. No s/sx of hyperglycemia/hypoglycemia. Safety precautions implemented, bed locked in lowest position, call light within reach.
--- NOTE | 2021-09-01 19:25 | NUR ---
RN NOTE PT RECEIVED IN BED. PT IS ON ROOM AIR SHOWING NO S/S OF RESP DISTRESS/SOB. BREATHING EVEN AND UNLABORED. PT IS A/OX3-4. KINYARWANDA SPEAKING. PT IS AMBULATORY. SKIN INTACT. IV ACCESS NOTED ON LEFT AC #20 AND RIGHT FOREARM #20. LINES FLUSHED, PATENT, AND INTACT WITH NO SIGNS OF INFILTRATION. ALL SAFETY MEASURES IMPLEMENTED. CALL LIGHT WITHIN REACH. BED ALARM ON. BED LOCKED AND IN LOWEST POSITION. WILL CONTINUE TO MONITOR AND ASSESS FOR ANY CHANGES.
[2021-09-01 20:00] VITALS: BP 126/70
[2021-09-01] MEDS ORDERED: POTASSIUM CHLORIDE 20 MEQ TAB.PRT.SR PO ONE (20:30)
[2021-09-02] MEDS: PIPERACILLIN /TAZOBACTAM 3.375 G in IV D5W 50 ML IV SCH ×5 (00:55→23:18)
[2021-09-02] MEDS: BLOOD SUGAR DIAGNOSTIC 1 EACH STRIP IN SCH ×5 (00:59→23:30)
[2021-09-02] MEDS: INSULIN REGULAR, HUMAN 100 UNIT/ML 3 ML VIAL SQ PRN ×2 (01:03→23:31)
[2021-09-02 04:00] VITALS: BP 102/60
[2021-09-02] MEDS: hydrALAZINE HCL 25 MG TABLET PO SCH ×3 (05:00→20:12)
[2021-09-02 06:43] LABS: BASOPHILS # (AUTO) 0.2 K/uL (0.0-0.2); BASOPHILS % (AUTO) 2.6 % (0.0-2.0); HEMATOCRIT 32 % (33-45); HEMOGLOBIN 10.7 g/dL (11.5-14.8); LYMPHOCYTES # (AUTO) 1.5 K/uL (0.8-4.8); LYMPHOCYTES % (AUTO) 17.2 % (20.0-44.0); MEAN CORPUSCULAR HGB CONC 34 g/dl (31.0-36.0); MEAN CORPUSCULAR VOLUME 89 fL (82-100); MONOCYTES # (AUTO) 0.9 K/uL (0.1-1.30); MONOCYTES % (AUTO) 10.5 % (2.0-12.0); NEUTROPHILS # (AUTO) 5.7 K/uL (1.8-8.9); NEUTROPHILS % (AUTO) 65.7 % (43.0-81.0); PLATELET COUNT (AUTO) 391 K/uL (150-450); RED BLOOD CELL COUNT(AUTO) 3.53 MIL/uL (4.0-5.2); WHITE BLOOD COUNT (AUTO) 8.7 K/uL (4.3-11.0)
--- NOTE | 2021-09-02 07:07 | NUR ---
RN NOTE NO CHANGES IN PT CONDITION DURING SHIFT. PT IS ON ROOM AIR SHOWING NO S/S OF RESP DISTRESS/SOB. BREATHING EVEN AND UNLABORED. PT IS A/OX3-4. IV ACCESS NOTED ON LEFT AC #20 AND RIGHT FOREARM #20. LINES FLUSHED, PATENT, AND INTACT WITH NO SIGNS OF INFILTRATION. ALL DUE MEDS GIVEN ORDERED. ALL SAFETY MEASURES IMPLEMENTED. CALL LIGHT WITHIN REACH. BED ALARM ON. BED LOCKED AND IN LOWEST POSITION. WILL ENDORSE TO MORNING SHIFT RN FOR TAVON.
--- NOTE | 2021-09-02 07:33 | NUR ---
NURSE OPENING NOTE RECEIVE REPORT FROM OUT GOING NURSE. PATIENT ADMITTING DIAGNOSIS WITH GI BLEED. ON ROOM AIR. A/OX3. AMBULATORY. SKIN INTACT. PATIENT IS NPO. WILL MONITOR LAB. SAFETY MEASURE IN PLACE. BED ON THE LOWEST POSITION WITH HOB ELEVATED AND 3 SIDE RAIL UP. CALL LIGHT WITHIN REACH. WILL CONTINUE TO MONITOR.
[2021-09-02 07:58] LABS: ALBUMIN 2.1 g/dL (3.4-5.0); BILIRUBIN,TOTAL 0.8 mg/dL (0.2-1.0); CALCIUM, SERUM 7.8 mg/dL (8.5-10.1); MAGNESIUM 1.8 mg/dL (1.8-2.4); PHOSPHORUS 3.5 mg/dL (2.5-4.9); POTASSIUM 3.5 mmol/L (3.5-5.1); TOTAL PROTEIN, SERUM 5.6 g/dL (6.4-8.2)
[2021-09-02] MEDS: BENAZEPRIL HCL 5 MG TABLET PO SCH (08:44)
[2021-09-02] MEDS: PANTOPRAZOLE 40 MG VIAL IV SCH ×2 (08:44→20:12)
[2021-09-02] MEDS: NITROGLYCERIN 30 GM TUBE TP SCH ×2 (08:45→17:04)
[2021-09-02] MEDS ORDERED: MIDAZOLAM HCL 2 MG/2ML VIAL ONE (11:05)
[2021-09-02] MEDS ORDERED: PROPOFOL 20 ML IV ONE (11:05)
[2021-09-02 12:00] VITALS: BP 193/88
--- NOTE | 2021-09-02 19:03 | NUR ---
NURSE CLOSING NOTE PATIENT MAINTAIN STABLE CONDITION THROUGH OUT SHIFT. PATIENT HAD COLONOSCOPY. NOTHING SERIOUS FOUND DURING EXAM. PATIENT PHONE IS MISSING. AN INCIDENT REPORT WAS DONE. FAMILY MEMBER BROUGHT IN NEW PHONE AND CHARTER BOAT CAPTAIN. PATIENT CURRENTLY ON REGULAR DIET. NPO AFTER MID NIGHT. WILL HAVE LAPAROSCOPIC CHOLECYSTECTOMY POSSIBLE OPEN EXPLORATORY LAPAROTOMY. ALL CONSENT SIGNED. PATIENT IS AMBULATORY. SAFETY MEASURE IN PLACE. BED ON THE LOWEST POSITION WITH 3 SIDE RAIL UP AND HOB ELEVATED. CALL LIGHT WITHIN REACH. WILL CONTINUE TO MONITOR AND GIVE REPORT.
--- NOTE | 2021-09-02 19:40 | NUR ---
RN NOTE PATIENT IN BED ALERT AND ORIENTED X3. ON ROOM AIR, NO S/S OF ANY RESPIRATORY DISTRESS. DENIES ANY PAIN AT THIS TIME, STATED SHE FEELS BETTER TODAY. PATIENT HAS LAPAROSCOPIC CHOLECYSTECTOMY POSSIBLE OPEN EXPLORATORY LAPAROTOMY IN AM, TO BE NPO @ MIDNIGHT. IV ACCESS ON LEFT AC #20 AND RIGHT FA #20, PATENT AND INTACT. BED LOCKED AND IN LOWEST POSITION. CALL LIGHT WITHIN REACH. ALL NEEDS ANTICIPATED.
[2021-09-02 20:00] VITALS: BP 150/77
[2021-09-03 04:00] VITALS: BP 160/80
[2021-09-03] MEDS: hydrALAZINE HCL 25 MG TABLET PO SCH ×3 (05:00→22:11)
[2021-09-03] MEDS: IV NS 0.9% 1,000 ML IV PRN (05:52)
[2021-09-03] MEDS: PIPERACILLIN /TAZOBACTAM 3.375 G in IV D5W 50 ML IV SCH ×3 (05:52→17:48)
[2021-09-03] MEDS: INSULIN REGULAR, HUMAN 100 UNIT/ML 3 ML VIAL SQ PRN ×3 (06:18→18:22)
[2021-09-03] MEDS: BLOOD SUGAR DIAGNOSTIC 1 EACH STRIP IN SCH ×3 (06:18→18:18)
[2021-09-03 06:40] LABS: BASOPHILS # (AUTO) 0.1 K/uL (0.0-0.2); BASOPHILS % (AUTO) 1.3 % (0.0-2.0); EOSINOPHILS % (AUTO) 4.2 % (0.0-6.0); HEMATOCRIT 34 % (33-45); HEMOGLOBIN 11.3 g/dL (11.5-14.8); LYMPHOCYTES # (AUTO) 1.3 K/uL (0.8-4.8); LYMPHOCYTES % (AUTO) 16.2 % (20.0-44.0); MEAN CORPUSCULAR HGB CONC 33 g/dl (31.0-36.0); MEAN CORPUSCULAR VOLUME 90 fL (82-100); MONOCYTES # (AUTO) 0.8 K/uL (0.1-1.30); MONOCYTES % (AUTO) 9.5 % (2.0-12.0); NEUTROPHILS # (AUTO) 5.7 K/uL (1.8-8.9); NEUTROPHILS % (AUTO) 68.8 % (43.0-81.0); PLATELET COUNT (AUTO) 410 K/uL (150-450); RED BLOOD CELL COUNT(AUTO) 3.76 MIL/uL (4.0-5.2); WHITE BLOOD COUNT (AUTO) 8.4 K/uL (4.3-11.0)
--- NOTE | 2021-09-03 06:59 | NUR ---
RN NOTE PATIENT IN BED ALERT AND ORIENTED X3. ON ROOM AIR, O2 SAT 97%. PATIENT HAS LAPAROSCOPIC CHOLECYSTECTOMY POSSIBLE OPEN EXPLORATORY LAPAROTOMY TODAY, REMAINS NPO. IV ACCESS ON LEFT AC #20 AND RIGHT FA #20, PATENT AND INTACT INFUSING NS @ 75ML/HR.. BED LOCKED AND IN LOWEST POSITION. CALL LIGHT WITHIN REACH. WILL ENDORSE TO AM SHIFT.
[2021-09-03] MEDS ORDERED: ANESTHESIA TRAY IN PYXIS 1 EA TRAY MC ONE (07:04)
[2021-09-03] MEDS ORDERED: BUPIVACAINE MPF W/EPI 0.25% 30 ML VIAL ONE (07:04)
[2021-09-03] MEDS ORDERED: BUPIVACAINE MPF 0.5% W/EPI INJ 30 ML VIAL ONE (07:05)
[2021-09-03] MEDS ORDERED: LIDOCAINE 1% INJ 50 ML MDV IJ ONE (07:05)
[2021-09-03 07:11] LABS: CALCIUM, SERUM 8.2 mg/dL (8.5-10.1); POTASSIUM 3.5 mmol/L (3.5-5.1)
--- NOTE | 2021-09-03 07:31 | NUR ---
RN NOTES PATIENT IS ALERT AND ORIENTED X3. PATIENT IS FOUND ON BED COMPLAINING OF DISCOMFORT. HAVE REPOSITIONING, PATIENT EXPRESSED RELIEF. PATIENT IS CURRENTLY ON ROOM AIR WITH O2 SAT OF 98%. PATIENT IS ON NPO AND AWAITING FOR TRANSFER FOR LAPAROSCOPIC CHOLECYSTECTOMY PROCEDURE. WILL CONTINUE TO MONITOR PRIOR TO TRANSFER FOR ANY CHANGES.
[2021-09-03] MEDS ORDERED: FENTANYL PF 100MCG/2ML AMPUL ONE ×2 (07:44→10:18)
[2021-09-03] MEDS ORDERED: ROCURONIUM BROMIDE 50 MG/5 ML ONE (07:44)
[2021-09-03] MEDS: PANTOPRAZOLE 40 MG VIAL IV SCH ×2 (09:00→21:39)
[2021-09-03] MEDS: CLONIDINE HCL 0.2MG/24H PTWK 1 EA PATCH TD SCH (09:00)
[2021-09-03] MEDS: NITROGLYCERIN 30 GM TUBE TP SCH ×2 (09:00→17:00)
[2021-09-03] MEDS: BENAZEPRIL HCL 5 MG TABLET PO SCH (09:00)
[2021-09-03] MEDS ORDERED: BACITRACIN OPHTH OINT 3.5 GM TUBE ONE (09:53)
[2021-09-03] MEDS ORDERED: ONDANSETRON HCL/PF 4 MG/2 ML VIAL ONE (10:36)
[2021-09-03 12:07] VITALS: BP 158/92
[2021-09-03] MEDS: IV LR 1000 ML 1,000 ML IV PRN (14:21)
--- NOTE | 2021-09-03 14:30 | NUR ---
PATIENT RETURNED FROM OR SHOWING NO SIGNS OF DISTRESS. VITAL SIGNS TAKEN AT 15 MINUTE INTERVALS FOR THE FIRST HOUR ARE WITHIN NORMAL LIMITS. PATIENT IS ALERT AND ORIENTED ON ROOM AIR. NORMAL SALINE WAS DC AND LACTATED RINGERS WAS PUT IN PLACE AT 100 ML/HR. PATIENT REPORTED MILD PAIN. TYLENOL AND IBUPROFEN WERE GIVEN AND WAS WELL TOLERATED BY PATIENT. PATIENT IS CURRENTLY IN BED WHICH IS AT THE LOWEST POSITION WITH THE WHEELS LOCKED IN PLACE. CALL LIGHT IS WITHIN REACH, WILL CONTINUE TO MONITOR FOR ANY SIGNIFICANT CHANGES. Addendum: 09/03/21 at 1636 by MODESTO MORGAN RN SHANTI NOTES
[2021-09-03] MEDS: IBUPROFEN 400 MG TABLET PO SCH ×2 (14:40→21:39)
[2021-09-03] MEDS: GABAPENTIN 300 MG CAPSULE PO SCH ×2 (14:40→21:39)
[2021-09-03] MEDS: ACETAMINOPHEN 325 MG TABLET PO SCH ×2 (14:40→21:39)
--- NOTE | 2021-09-03 18:51 | NUR ---
RN CLOSING NOTES PATIENT EXPRESSES RECOVERY AND IMPROVEMENT FOLLOWING HER LAPAROSCOPIC CHOLESCYSTECTOMY PROCEDURE. PATIENT REMAINS A&O X4. LACTATED RINGERS SOLUTION IS RUNNING AT 100 ML/HR. PATIENT REMAINS IN BED WHICH IS AT THE LOWEST POSITION WITH CALL LIGHT IN REACH. WILL ENDORSE TO INCOMING NURSE.
--- NOTE | 2021-09-03 19:30 | NUR ---
RN NOTE RECEIVED PATIENT IN BED, AO X 4, SPEAKS MEXICAN AND CHINESE, BUT UNDERSTANDS SIMPLE KOREAN. IN NO S/SX OF ACUTE DISTRESS AT THIS TIME. BREATHING EVEN AND UNLABORED, SATURATION AT 98% ON ROOM AIR, HR IS 79. NOTED IV SITE AT LAC 20G, AND RFA 20G, PATENT AND FLUSHING WELL, NO S/S OF INFECTION OR INFILTRATION. SAFETY MEASURES IMPLEMENTED. PATIENT BED ALARM IS ON. HEAD OF BED ELEVATED. BED IS LOCKED, IN LOWEST POSITION AND SIDE RAILS UP. CALL LIGHT WITHIN REACH OF THE PATIENT. WILL CONTINUE TO MONITOR AND REASSESS FOR ANY CHANGES. Addendum: 09/03/21 at 2320 by KIRSTEN AUGUSTIN RN LR INFUSING AT 100 ML/HR
[2021-09-03 20:00] VITALS: BP 106/61
[2021-09-04] MEDS: PIPERACILLIN /TAZOBACTAM 3.375 G in IV D5W 50 ML IV SCH ×3 (00:03→11:12)
[2021-09-04] MEDS: BLOOD SUGAR DIAGNOSTIC 1 EACH STRIP IN SCH ×5 (00:11→23:57)
[2021-09-04] MEDS: INSULIN REGULAR, HUMAN 100 UNIT/ML 3 ML VIAL SQ PRN ×3 (00:16→23:58)
[2021-09-04 04:00] VITALS: BP 111/63
[2021-09-04] MEDS: IV LR 1000 ML 1,000 ML IV PRN ×2 (05:11→17:12)
[2021-09-04] MEDS: hydrALAZINE HCL 25 MG TABLET PO SCH ×3 (05:12→21:54)
[2021-09-04] MEDS: ACETAMINOPHEN 325 MG TABLET PO SCH ×3 (05:12→22:00)
[2021-09-04] MEDS: IBUPROFEN 400 MG TABLET PO SCH ×3 (05:13→22:00)
[2021-09-04] MEDS: GABAPENTIN 300 MG CAPSULE PO SCH ×3 (05:13→21:54)
[2021-09-04 06:37] LABS: BASOPHILS # (AUTO) 0.1 K/uL (0.0-0.2); EOSINOPHILS % (AUTO) 1.9 % (0.0-6.0); HEMATOCRIT 29 % (33-45); HEMOGLOBIN 9.9 g/dL (11.5-14.8); LYMPHOCYTES # (AUTO) 1.6 K/uL (0.8-4.8); LYMPHOCYTES % (AUTO) 18.3 % (20.0-44.0); MEAN CORPUSCULAR HGB CONC 34 g/dl (31.0-36.0); MEAN CORPUSCULAR VOLUME 91 fL (82-100); MONOCYTES # (AUTO) 0.9 K/uL (0.1-1.30); MONOCYTES % (AUTO) 10.3 % (2.0-12.0); NEUTROPHILS # (AUTO) 6.1 K/uL (1.8-8.9); NEUTROPHILS % (AUTO) 68.5 % (43.0-81.0); PLATELET COUNT (AUTO) 348 K/uL (150-450); RED BLOOD CELL COUNT(AUTO) 3.22 MIL/uL (4.0-5.2); WHITE BLOOD COUNT (AUTO) 8.9 K/uL (4.3-11.0)
[2021-09-04 07:08] LABS: CALCIUM, SERUM 7.7 mg/dL (8.5-10.1); CREATININE 1.1 mg/dL (0.6-1.3); MAGNESIUM 1.7 mg/dL (1.8-2.4); POTASSIUM 3.1 mmol/L (3.5-5.1)
--- NOTE | 2021-09-04 07:24 | NUR ---
RN OPENING NOTE PATIENT RECEIVED IN BED, ASLEEP. PATIENT ON ROOM AIR WITH NO SIGNS OF LABORED BREATHING AT THIS TIME. NO DISTRESS NOTED LEFT AC AND R FOREARM 20G IN PLACE RUNNING LR AT 100CC/HR WITH NO SIGNS OF INFILTRATION. BED LOCKED AND IN LOWEST POSITION, 2 SIDE RAILS UP, CALL LIGHT WITHIN REACH, ALL SAFETY MEASURES IMPLEMENTED. WILL CONTINUE TO MONITOR.
[2021-09-04 08:00] VITALS: BP 119/69
[2021-09-04] MEDS: BENAZEPRIL HCL 5 MG TABLET PO SCH (08:10)
[2021-09-04] MEDS: NITROGLYCERIN 30 GM TUBE TP SCH ×2 (08:10→17:04)
[2021-09-04] MEDS: PANTOPRAZOLE 40 MG VIAL IV SCH ×2 (08:10→21:54)
[2021-09-04] MEDS: POTASSIUM CHLORIDE 20 MEQ TAB.PRT.SR PO SCH ×2 (09:36→10:12)
[2021-09-04] MEDS: Magnesium 1GM/D5W 100ML PREMIX 100 ML IV SCH ×2 (09:36→10:12)
[2021-09-04] MEDS ORDERED: CLONIDINE HCL 0.2MG/24H PTWK 1 EA PATCH TD SCH (14:00)
--- NOTE | 2021-09-04 18:35 | NUR ---
RN CLOSING NOTE PATIENT IN BED, AWAKE, A&OX4. PATIENT ON ROOM AIR WITH NO SIGNS OF LABORED BREATHING AT THIS TIME. L AC 20G IN PLACE, PATENT WITH NO SIGNS OF INFILTRATION AND RIGHT FA 20G IN PLACE, PATENT WITH NO SIGNS OF INFILTRATION AND RUNNING LR AT 100CC/HR. NO SIGNS OF DISTRESS NOTED. BED LOCKED AND IN LOWEST POSITION, 3 SIDE RAILS UP, CALL LIGHT WITHIN REACH, WILL ENDORSE TO LEAD INSTALLER NURSE.
[2021-09-04 20:00] VITALS: BP 140/75
--- NOTE | 2021-09-04 22:05 | NUR ---
RN NOTE PT AWAKE,ALERT AND ORIENTED. ABLE TO MAKE NEEDS KNOWN. REFUSED TO TAKE TYLENOL AND MOTRIN DENIES ANY PAIN, SURGICAL SITES DRESSING CLEAN DRY AND INTACT. PT AMBULATES TO RESTROOM, ON STAND BY ASSIST. PT ON IV FLUIDS LR AT 100ML/HR, INFUSING WELL. WILL CONTINUE TO MONITOR.
[2021-09-05 04:00] VITALS: BP 143/79
[2021-09-05] MEDS: IV LR 1000 ML 1,000 ML IV PRN (04:26)
[2021-09-05] MEDS: hydrALAZINE HCL 25 MG TABLET PO SCH ×2 (05:28→12:26)
[2021-09-05] MEDS: GABAPENTIN 300 MG CAPSULE PO SCH ×2 (05:29→14:40)
[2021-09-05] MEDS: ACETAMINOPHEN 325 MG TABLET PO SCH ×2 (05:56→14:40)
[2021-09-05] MEDS: BLOOD SUGAR DIAGNOSTIC 1 EACH STRIP IN SCH ×2 (05:56→12:22)
[2021-09-05] MEDS: IBUPROFEN 400 MG TABLET PO SCH ×2 (05:56→14:40)
[2021-09-05] MEDS: INSULIN REGULAR, HUMAN 100 UNIT/ML 3 ML VIAL SQ PRN ×2 (05:56→12:28)
[2021-09-05 06:56] LABS: CALCIUM, SERUM 7.8 mg/dL (8.5-10.1); CREATININE 0.9 mg/dL (0.6-1.3); POTASSIUM 3.6 mmol/L (3.5-5.1)
--- NOTE | 2021-09-05 07:01 | NUR ---
RN NOTE PT TOLERATING ROOM AIR. NO SIGNS OF DISTRESS NOTED. CONTINUE ON IVFLUIDS OF LR AT 100 ML/HR INFUSING WELL. NO SIGNS OF INFILTRATION NOTED. DENIES ANY PAIN. REFUSED TO TAKE ANY PAIN MEDICATIONS SCHEDULED. PT AMBULATES TO RESTROOM, WITH STANDBY ASSIST. PT W/UNSTEADY GAIT. ALL SAFETY MEASURES MAINTAINED, WILL ENDORSE TO NEXT SHIFT NURSE FOR TAVON.
--- NOTE | 2021-09-05 07:20 | NUR ---
RN OPENING NOTE MED SURGE PATIENT RECEIVED IN BED, ALERT AND ORIENTED. PATIENT ON ROOM AIR WITH NO SIGNS OF LABORED BREATHING AT THIS TIME. NO DISTRESS NOTED RIGHT FOREARM 20G IN PLACE RUNNING WITH NO SIGNS OF INFILTRATION. BED LOCKED AND IN LOWEST POSITION, 2 SIDE RAILS UP, CALL LIGHT WITHIN REACH, ALL SAFETY MEASURES IMPLEMENTED. WILL CONTINUE TO MONITOR.
[2021-09-05 08:00] VITALS: BP 182/83
[2021-09-05] MEDS: BENAZEPRIL HCL 5 MG TABLET PO SCH (08:15)
[2021-09-05] MEDS: NITROGLYCERIN 30 GM TUBE TP SCH (08:16)
[2021-09-05] MEDS: PANTOPRAZOLE 40 MG VIAL IV SCH (08:17)
--- NOTE | 2021-09-05 09:30 | NUR ---
RN NOTES DUE MEDS GIVEN
[2021-09-05 12:00] VITALS: BP 159/98
[2021-09-05 12:26] VITALS: BP 159/98
--- NOTE | 2021-09-05 16:00 | NUR ---
MS RN NOTES PATIENT DISCHARGED TO HOME TODAY PER MD IN STABLE CONDITION. PROVIDED DC INSTRUCTION, HEALTH TEACHINGS AND MED RECON LIST. PATIENT TO FOLLOW UP WITH PCP IN 1-2 WEEKS AND WILL MAKE OWN APPOINTMENT. IV ACCESS TO RIGHT FOREARM, REMOVED, CATH TIP COMPLETE, APPLIED PRESSURE, NO BLEEDING, DRESSING IN PLACE. BELONGINGS CHECKED AND RETURNED. ALL PAPERWORKS COMPLETE AND SIGNED. PATIENT PICKED UP BY BROTHER AMBER TO GO HOME VIA PRIVATE CAR.
== END 2021-09-05 16:02 | disposition home health service (06) | DRG 263 ==
LOC: ER 02:21 → TELE1 04:35 → MEDSG1 08-29 19:37
PROVIDERS: ADMIT Nurse Practitioner Acute Care; ATTEND Nurse Practitioner Acute Care
PROC: 30233N1 Transfusion of Nonautologous Red Blood Cells into Peripheral Vein, Percutaneous Approach (ICD-10-PCS; 2021-08-29)
PROC: 0DJD8ZZ Inspection of Lower Intestinal Tract, Via Natural or Artificial Opening Endoscopic (ICD-10-PCS; principal; 2021-09-02)
PROC: 0DB68ZX Excision of Stomach, Via Natural or Artificial Opening Endoscopic, Diagnostic (ICD-10-PCS; 2021-09-02)
PROC: 0FT44ZZ Resection of Gallbladder, Percutaneous Endoscopic Approach (ICD-10-PCS; 2021-09-03)
DX: K80.12 Calculus of gallbladder with acute and chronic cholecystitis without obstruction (principal); I21.A1 Myocardial infarction type 2; E11.65 Type 2 diabetes mellitus with hyperglycemia; D64.9 Anemia, unspecified; E83.42 Hypomagnesemia; E87.6 Hypokalemia; K64.8 Other hemorrhoids; I10 Essential (primary) hypertension; Z20.822 Contact with and (suspected) exposure to COVID-19; I25.10 Atherosclerotic heart disease of native coronary artery without angina pectoris; Z86.16 Personal history of COVID-19; F17.210 Nicotine dependence, cigarettes, uncomplicated; K29.70 Gastritis, unspecified, without bleeding; I25.2 Old myocardial infarction; K57.30 Diverticulosis of large intestine without perforation or abscess without bleeding; K92.2 Gastrointestinal hemorrhage, unspecified; Z82.3 Family history of stroke; Z82.49 Family history of ischemic heart disease and other diseases of the circulatory system; Z83.3 Family history of diabetes mellitus; Z79.84 Long term (current) use of oral hypoglycemic drugs; K82.8 Other specified diseases of gallbladder
CPT/HCPCS: 36415; 71045-TC; 76705-TC; 78226; 80048-TC; 80053-TC; 80061-TC; 80076-TC; 82272-TC; 82378; 82962-TC; 83690-TC; 83735-TC; 84100-TC; 84484-TC; 85025-TC; 85652-TC; 85730-TC; 86850-TC; 87081-TC; 88304-TC; 88305-TC; 88313-TC; 88342; 93307-TC; 97112-TC; 97116-TC; 97530-TC; A9537; A9563; C9113; C9803; G0378; J0330; J0360; J0690; J1100; J1815; J2250; J2370; J2405; J2543; J2704; J2765; J3010; J3475; J3480; J3490; J7030; J7040; J7050; J7060; J7120; P9016

== ENCOUNTER 2022-11-13 21:44 | Emergency (ER) | payer OTHER ==
[~2022-11-13] VITALS: Ht 152.4 cm; Wt 62.1 kg
[~2022-11-13 21:44] MED LIST: BENA5TAB5 PO; METF-442 PO
[2022-11-13 22:52] VITALS: BP 188/96
--- NOTE | 2022-11-13 22:55 | NUR ---
PATIENT BIBHUSBAND C/O LEFT FOOT AND TOES PAIN, REDNESS AND WOUND. HX OF DIABETES. PATIENT IS A/O X 4, RR EVEN AND UNLABORED NO ACUTE DISTRESS NOTED. PATIENT IS AFEBRILE. VSS.
[2022-11-13 23:28] LABS: BASOPHILS # (AUTO) 0.1 K/uL (0.0-0.2); BASOPHILS % (AUTO) 0.7 % (0.0-2.0); EOSINOPHILS % (AUTO) 1.1 % (0.0-6.0); HEMATOCRIT 29 % (33-45); HEMOGLOBIN 9.8 g/dL (11.5-14.8); LYMPHOCYTES # (AUTO) 2.2 K/uL (0.8-4.8); LYMPHOCYTES % (AUTO) 20.9 % (20.0-44.0); MEAN CORPUSCULAR HGB CONC 34 g/dl (31.0-36.0); MEAN CORPUSCULAR VOLUME 85 fL (82-100); MONOCYTES # (AUTO) 0.6 K/uL (0.1-1.30); MONOCYTES % (AUTO) 5.9 % (2.0-12.0); NEUTROPHILS # (AUTO) 7.5 K/uL (1.8-8.9); NEUTROPHILS % (AUTO) 71.4 % (43.0-81.0); PLATELET COUNT (AUTO) 415 K/uL (150-450); RED BLOOD CELL COUNT(AUTO) 3.45 MIL/uL (4.0-5.2); WHITE BLOOD COUNT (AUTO) 10.5 K/uL (4.3-11.0)
[2022-11-13 23:42] LABS: CALCIUM, SERUM 8.9 mg/dL (8.5-10.1); POTASSIUM 4.2 mmol/L (3.5-5.1)
[2022-11-13 23:47] LABS: ALBUMIN 2.8 g/dL (3.4-5.0); BILIRUBIN,DIRECT 0.1 mg/dL (0.0-0.2); BILIRUBIN,TOTAL 0.2 mg/dL (0.2-1.0); TOTAL PROTEIN, SERUM 6.9 g/dL (6.4-8.2)
[2022-11-13] MEDS ORDERED: CEPH500T PO (23:58)
--- NOTE | 2022-11-14 00:09 | NUR ---
Patient discharged to home in stable condition. Written and verbal after care instructions given. Patient verbalizes understanding of instruction.
== END 2022-11-14 00:12 | disposition home or self-care (01) ==
LOC: ER 21:46
DX: E11.621 Type 2 diabetes mellitus with foot ulcer (principal); L97.529 Non-pressure chronic ulcer of other part of left foot with unspecified severity; I10 Essential (primary) hypertension; Z79.84 Long term (current) use of oral hypoglycemic drugs; Z79.899 Other long term (current) drug therapy
CPT/HCPCS: 36415; 73620-TC; 80048-TC; 80076-TC; 85025-TC; 85730-TC